=== PATIENT | female | born 1970 | race Caucasian/White ===

== ENCOUNTER 2018-10-01 09:26 | Inpatient (IN) | payer BC ==
[~2018-10-01] VITALS: Ht 170.2 cm; Wt 102.1 kg
--- NOTE | ~2018-10-01 | HC ---
[facility] [place] [address] CONSULTATION Name: ANASTASIIA WHYTEConcepciónKARLIE L Room #: 359-P ADM IN M.R.#: [id number] Admission: 10/01/18 ������������������ Attend Phys: Scott Mcfarland Discharge: ������������������ Date of : 70 Report #: [id number] THIS REPORT FOR: //name// CC: FAM unknown Scott Mcfarland DATE OF SERVICE: 10/03/2018 DICTATED BY: Dr. Mccartney. HISTORY OF PRESENT ILLNESS: This is a 47-year-old female patient who was evaluated by me for a complicated history. I talked to the nurses looking after this patient in detail. I took the history from the patient and the family. I have left a message for Dr. Mcfarland, the admitting physician, and I will talk to him when he called back. I reviewed the note from Emergency Room physician as well as admission history and physical examination. The patient indicated that about 1 year ago, she started having episodes where she falls down. She believes that she loses strength in all 4 extremities. She has dizziness associated with it. She feels weak after this episode for several minutes. It does not look like she lose the consciousness, but she feels she is altered. She has fallen down during these spells, but has not hurt herself. She described that she feels as if she has drank too much when this spell occurred. She was admitted after having a similar spell. She also had a diffuse headache associated with this. She had about 10 spells during the last year. I reviewed the patient's records and it looks like that this patient had a CT scan and a spinal tap so far. CT scan was unremarkable. A spinal tap indicated that this patient has 16 rbc's, there are 3 wbc's and the total protein is 54, which is slightly raised. After this, the patient was going to be dismissed, but reviewing the nurses records and talking to the nurses, it looks like the patient was upset and the discharge was canceled and a Neurology consult was requested. The patient was seen and the patient's history was taken from the patient and the father because the patient wanted me to talk to him. The patient indicates that she had headache for a long period of time. She gets migraine headache. One of the headaches required admission to [facility]. Multiple medications were tried on her and ultimately she responded to D.H.E. 45. I do not have any of those records and this is from the patient herself. Her blood pressure has been running low for a long time. It has been in 90s as I understand from the patient. Nobody has seen her blood pressure or pulse during the spells she has. She gets a migraine headache every few months. [facility] [address] [place] [address] CONSULTATION Name: KARLIE SIMS Room #: 359-P [facility] IN M.R.#: [id number] Admission: 10/01/18 ������������������ Attend Phys: Scott Mcfarland Discharge: ������������������ Date of : 70 Report #: [id number] headache is still diffuse headache. There is not a clear-cut visual symptom with this headache. The patient indicates that she has been on weight reduction medications from last one year or so. It has been changed 3 times. She does not know how the blood pressure runs when she was taking that medications. REVIEW OF SYSTEMS: Her 14-point review of systems was carried out. When she came in, her white count was high at 17.3. She is somewhat febrile now with a temperature of 100.2 The patient was given medication for her headaches and she tells me that oxygen saturation dropped one time with one medication, but it is staying pretty good now. I do not see any place what medication it was and I will discuss that with Dr. Mcfarland. Before these headaches, the patient used to also get Toradol and that also used to help her headache, but presently Toradol has not helped any headache. I tried to talk to her if she has any aggravation or relieving of the headache by changing her posture, but there is no aggravation of the headache when she is upright and there is no relief when she is flat, making it unlikely that it is post-spinal headache. She did have some nausea and vomiting associated with these symptoms. She is not complaining of any musculoskeletal symptoms. She denies any significant psychological stressors. Presently, she is on multiple medications. She did receive one dose of Dilaudid. She is on morphine. She is on 50 mg of topiramate. She is on metoprolol. She is on gabapentin. History is somewhat confusing there because some of the records indicate that she was on duloxetine, but present medication does not list duloxetine. PAST MEDICAL HISTORY: Positive for these spells for 1 year and migraine headaches for a long time. FAMILY HISTORY: Unremarkable. SOCIAL HISTORY: She said she drank 2 or 3 wine coolers, but she does not abuse alcohol. PHYSICAL EXAMINATION: Indicate she is alert. She is responsive. She is oriented. Her speech, concentration, fund of knowledge and memory appeared to be at her baseline. She has no meningeal sign. Neuromuscular examination appears unremarkable. I could not look at the patient's fundus. She has presently no respiratory difficulty. Pulses are palpable. Her last blood pressure was 148/88, respirations 16, pulse is 95, temperature is 100.2. Last white count was 10.3, which is normal. The worrisome lab is that her GFR was only 30. There is a significant rise in creatinine, which has not changed after giving her the fluids. She also has increased AST and ALT. She did have [facility] [address] [place] [address] CONSULTATION Name: OLIVAFEDERICO KARLIE EL Room #: 359-P ADM IN .R.#: [id number] Admission: 10/01/18 ������������������ Attend Phys: Scott Mcfarland Discharge: ������������������ Date of : 70 Report #: [id number] scan of the head, which was mostly unremarkable. IMPRESSION: This patient is having multiple problems, which need to be addressed. 1. She is having episode of dizziness and falling out. Those may be because of hypertension, but posterior fossa etiology need to be excluded. I will suggest doing an MRI of the brain, MRA of the head and EEG to exclude any further etiology there. 2. Long-standing history of migraine with present episode also having headache. It has happened in the past also. Treatment is going to be difficult, especially if she had oxygen desaturation with one dose of narcotic as she tells me, but I need to confirm that with Dr. Mcfarland, the admitting physician and hospitalist. We need pain management for that, but unfortunately the best I know no pain management comes here. I discussed that aspect with the patient and the family and either we need to arrange pain management on her or landscape specialist need to address that problem with them and I will talk to them. 3. I am not sure why she is having a creatinine of 1.8, but that may predispose her to the toxicity of her narcotics, again indicating that we need pain management to address that. 4. Low-grade temperature, which may need further workup. 5. Increased white count when she came in, but again that is becoming better, but may have to be addressed, especially if the fever continued. 6. Although the patient is predisposed to pseudotumor cerebri, but that is unlikely to be the cause because they did a spinal fluid on her and they would have noticed some pressure increased that time, although I do not know if they measured the pressure or not. From their note, it looks like they were able to obtain only small amount of fluid and I suspect they may not be able to measure the pressure. 7. She does have some red blood cells in the cerebrospinal fluid, but that is only 16 and she does have slightly increased protein, which is somewhat unusual for the young people, but the protein does go up with any amount of red blood cells. RECOMMENDATIONS: I will talk to the hospitalist. From neurological perspective, I think she needs an MRI and MRA because of the spells she is having for 1 year. Because of multiple reasons summarized above, I think this patient needs pain management. She has multiple systemic issues, which also may have to be addressed. She is on beta-hesham, but she is not on any macrolide and I think small dose of D.H.E. 45 can be tried if that has worked in the past and since nothing else has worked. [address] [address] CONSULTATION Name: KARLIE SIMS Room #: 359-P ADM IN M.R.#: [id number] Admission: 10/01/18 ������������������ Attend Phys: Scott Mcfarland Discharge: ������������������ Date of : 70 Report #: [id number] Thank you very much for allowing me to share in the management of this patient and I will discuss this patient with you. ��������������������������������������������� ���������������������������������������� By: ��������������������������������������������� [id number] Len Kathleen MD /jonathan
[2018-10-01 09:27] VITALS: BP 125/73
[2018-10-01 10:25] LABS: CALCIUM 9.8 mg/dL (8.5-10.1); CREATININE 1.8 mg/dL (0.6-1.0); POTASSIUM 5.3 mmol/L (3.5-5.1)
[2018-10-01 10:37] LABS: URINE BILIRUBIN NEGATIVE (Negative); URINE BLOOD TRACE (Negative); URINE CLARITY CLEAR; URINE COLOR YELLOW; URINE GLUCOSE-RANDOM* 3+ (Negative); URINE KETONES NEGATIVE (Negative); URINE LEUKOCYTES-REFLEX NEGATIVE (Negative); URINE NITRITE-REFLEX NEGATIVE (Negative); URINE PROTEIN (DIPSTICK) NEGATIVE (Negative); URINE UROBILINOGEN 0.2 E.U./dl (0.2-1.0)
[2018-10-01 10:56] LABS: ABSOLUTE NEUTROPHILS 13.4 thou/uL (1.4-8.2); BASOPHILS 0.1 % (0.0-2.0); EOSINOPHILS 0.9 % (0.0-3.0); HEMATOCRIT 36.5 % (37.0-47.0); HEMOGLOBIN 11.9 gm/dL (12.0-15.0); LYMPHOCYTES 16.3 % (24.0-44.0); MCH 28.4 pg (26.0-34.0); MCHC 32.6 g/dL (28.0-37.0); MCV 87.2 fL (80.0-100.0); MONOCYTES 4.9 % (1.0-8.0); PLATELET COUNT 325 thou/uL (150-400); POLYS 77.8 % (36.0-66.0); RBC 4.18 mil/uL (4.20-5.00); RDW 13.5 % (10.5-14.5); WBC 17.3 thou/uL (4.0-11.0)
[2018-10-01 15:19] LABS: APTT 25.5 Seconds (24.5-32.8); PROTIME 9.6 Seconds (9.3-11.4)
[2018-10-01 15:30] VITALS: BP 121/76
[2018-10-01 16:33] LABS: CSF GLUCOSE 58 mg/dL (40-70); CSF PROTEIN 54 mg/dL (15-45)
[2018-10-01 16:35] LABS: CSF CLARITY CLEAR; CSF COLOR COLORLESS; CSF RBC 16 /mm3; CSF WBC 3 /mm3 (0-10); VOLUME 4 ml
[2018-10-01 16:45] VITALS: BP 96/52
--- NOTE | 2018-10-01 17:14 | NUR ---
ASSUMED PATIENT CARE FROM ED. PATIENT CAME IN WITH A HEADACHE AND NECK PAIN. WHITE COUNT IS ALSO ELEVATED. LUMBAR PUNCTURE DONE, WAITING FOR RESULTS. ON DROPLET PRECAUTIONS FOR FIRST 24 HOURS OF ANTIBIOTIC TREATMENT. ADMIT COMPLETED. PATIENT STATES THEY HAVE ALSO BEEN FEELING DIZZY. THEY RECENTLY HAVE LOST 80 LBS AND HAVE NOT HAD THEIR BLOOD PRESSURE MEDICATIONS READJUSTED. FAMILY AT BEDSIDE. WORKING TOWARDS DISCHARGE GOALS.
[2018-10-01 19:48] VITALS: BP 100/60
[2018-10-02 04:36] VITALS: BP 149/73
[2018-10-02 07:54] VITALS: BP 122/67
[2018-10-02 11:20] LABS: HEMATOCRIT 32.7 % (37.0-47.0); HEMOGLOBIN 10.6 gm/dL (12.0-15.0); MCHC 32.4 g/dL (28.0-37.0); MCV 89.5 fL (80.0-100.0); RBC 3.66 mil/uL (4.20-5.00); RDW 14.5 % (10.5-14.5); WBC 10.3 thou/uL (4.0-11.0)
[2018-10-02 11:29] LABS: CALCIUM 8.4 mg/dL (8.5-10.1); CREATININE 1.8 mg/dL (0.6-1.0); POTASSIUM 4.9 mmol/L (3.5-5.1)
--- NOTE | 2018-10-02 15:51 | EKG ---
[place] [address] [facility] [place] [address] ELECTROCARDIOGRAM REPORT Name: KARLIE SIMS Room #: 359-[facility] IN ..#: [id number] ������������������ Admission: 10/01/18 ������������������ Attend Phys: Scott Mcfarland Discharge: ������������������ Date of : 70 Report #: [id number] ����������������������������������������������������������������� [id number] THIS REPORT FOR: //name// [facility] ED Test Date: 2018-10-01 Test Time: 09:39:57 Pat Name: KARLIE EL Department: Room: [facility] Gender: F [employer]ch[employer]iser Lead: goran : 1970 Requested By: Skinny Mendoza Order Number: [id number] MD: Francisco Last Measurements Intervals [place] Rate: 86 P: 50 [place]: 146 QRS: 0 QRSD: 98 T: 48 QT: 356 QTc: 426 Interpretive Statements Sinus rhythm Nonspecific ST segment abnormality No previous ECG available for comparison Electronically Signed On 10-02-2018 15:51:07 CDT by Francisco Last [email or web address] ��������������������������������������������� <ELECTRONICALLY SIGNED> ���������������������������������������� By: Francisco Last MD, [facility] ��������������������������������������������� 10/02/18 1551 0939 8 Francisco Last MD, FACC /EPI
[2018-10-02 16:17] VITALS: BP 141/81
[2018-10-02 19:20] VITALS: BP 118/70
[2018-10-03 04:55] VITALS: BP 111/68
--- NOTE | 2018-10-03 06:10 | NUR ---
PT MAKING SLOW PROGRESS TOWARDS GOALS. PT REPORTING HEADACHE 5-6/10. GETTING LORTAB AND MORPHINE PER ORDERS. REPORTS PAIN DECREASES TO 4/10 AFTER DOSING. STATES HEADACHE AND NECKACHE FEELS LIKE PRESSURE, LIKE A "BALLOON EXPANDING."
[2018-10-03 07:17] VITALS: BP 144/71
--- NOTE | 2018-10-03 14:48 | NUR ---
ASSUMED CARE OF PT AT APPROX 0700. PT IS ALERT AND ORIENTED X4, MONITORED ON TELE AND ABLE TO MAINTAIN 02 SAT >90 ON RA. DENIES SOA, EVEN NON LABORED BEATHING. PT COMPLAINS OF HEADACHE THAT IS NOT RESOLVED WITH PAIN MEDICATION. PT UPSET WHEN CALLED OUT FOR PAIN MEDICATION BUT EXPLAINED THAT IT WAS NOT TIME FOR PAIN MEDICATION. RECIEVED ORDER FOR DC. PT IS UPSET AND DOES NOT WANT TO BE DISCHARGED. PT AND FATHER WHO IS AT BEDSIDE REQUEST TO LABS AND REASONING FOR DC IF PT STILL HAS PEÑA AND WOULD LIKE MORE PAIN MEDICATION. DOCTOR NOTIFIED AND CAME TO UNIT TO SPEAK WITH PATIENT AND FATHER. RECIEVED NEW ORDRS AND PT WILL STAY TODAY PENDING NEW NEURO CONSULT. GAVE ADDITIONAL PAIN MEDICATION THAT WAS ORDERED BY . PT IS NOW SLEEPING IN BED WITH NO COMPLAINTS. FATHER REMAINS AT BEDSIDE REQUESTS 02 TO BE TAKEN. 02 SAT REMAINS >90. NO NEW CONCERNS OR COMPLAINTS AT THIS TIME. WILL CONTINUE TO MONITOR.
[2018-10-03 15:17] VITALS: BP 148/88
[2018-10-03 18:19] LABS: ALBUMIN 3.1 g/dL (3.4-5.0); CALCIUM 8.6 mg/dL (8.5-10.1); CREATININE 1.7 mg/dL (0.6-1.0); POTASSIUM 5.8 mmol/L (3.5-5.1); TOTAL BILIRUBIN 0.2 mg/dL (<0.1-1.0); TOTAL PROTEIN 5.9 g/dL (6.4-8.2)
[2018-10-03 19:58] VITALS: BP 115/63
--- NOTE | 2018-10-04 02:49 | NUR ---
ASSUMED CARE OF PT AT 1900. A&Ox4, VS ARE STABLE, NO RESP DISTRESS. PT DID C/O PEÑA, RADIATING FROM PEÑA DOWN NECK. TRIED DIFFERENT MEDICATIONS BUT NONE WERE EFFECTIVE. CURRENTLY RESTING IN BED. SLOWLY PROGRESSING TOWARDS PCOG
[2018-10-04 05:03] VITALS: BP 131/70
[2018-10-04 08:07] VITALS: BP 140/82
[2018-10-04 10:50] LABS: CALCIUM 9.5 mg/dL (8.5-10.1); CREATININE 1.8 mg/dL (0.6-1.0); POTASSIUM 5.3 mmol/L (3.5-5.1)
[2018-10-04 11:02] VITALS: BP 140/82
--- NOTE | 2018-10-04 16:02 | NUR ---
ASSUMED PATIENT CARE AT 0700. A/O X4. C/O HEADACHE. LEYLA MAZARIEGOS. CAMILLE TO HOME NOW
== END 2018-10-04 16:20 | disposition home or self-care (01) | DRG 102 ==
LOC: ER 09:26 → 3W 12:48 → EROBS 12:48 → 3W 15:51
PROVIDERS: Emergency Medicine; Psychiatry & Neurology Neuromuscular Medicine; ADMIT Hospitalist
PROC: 009U3ZX Drainage of Spinal Canal, Percutaneous Approach, Diagnostic (ICD-10-PCS; principal; 2018-10-01)
PROC: B01B1ZZ Fluoroscopy of Spinal Cord using Low Osmolar Contrast (ICD-10-PCS; principal; 2018-10-01)
DX: G43.901 Migraine, unspecified, not intractable, with status migrainosus (principal); N17.0 Acute kidney failure with tubular necrosis; I10 Essential (primary) hypertension; E87.5 Hyperkalemia; D72.829 Elevated white blood cell count, unspecified; Z90.710 Acquired absence of both cervix and uterus; Z88.8 Allergy status to other drugs, medicaments and biological substances; Z88.6 Allergy status to analgesic agent
CPT/HCPCS: 10879

== ENCOUNTER → 2019-12-28 | Outpatient (CLI) | payer BC ==
[~2019-12-28] MED LIST: ALDACTONE50 MG PO; AVAPRO300 MG PO; CYMBALTA60 MG PO; ESTRADIOL 1 MG T1 M1 PO; IMITREX 50 MG T50 MG PO; NEURONTIN 300300 M1 PO; OMEPRAZOLE40 MG PO; SIMVASTATIN40 MG PO; TOPAMAX 100 MG100 MG PO; TOPROL XL100 MG PO; XIGDUO XR 5 MG1 EAC1 PO; ZYRTEC10 M4 PO
== END ==
LOC: LAB 14:44
PROVIDERS: ATTEND Nurse Practitioner
DX: U07.1 COVID-19 (principal)

== ENCOUNTER → 2020-06-13 | Outpatient (CLI) | payer BC, OTHER | LOC: LAB 08:58 | PROVIDERS: ATTEND Nurse Practitioner | DX: J02.9 Acute pharyngitis, unspecified (principal); R05 Cough; R51.9 Headache, unspecified; Z20.822 Contact with and (suspected) exposure to COVID-19 ==